=== PATIENT | male | born 1965 | race Caucasian/White ===

== ENCOUNTER 2016-12-28 12:37 | Observation (INO) | payer OTHER ==
[~2016-12-28] VITALS: Ht 167.6 cm; Wt 90.1 kg
[~2016-12-28 12:37] MED LIST: LISI-363 PO; METHO500 PO; PERC10TA27 PO; PERC5TAB12 PO; PRED20 PO; TIZA4CAP PO
[2016-12-28 12:39] VITALS: BP 136/82; PULSE 114; RESP 24; TEMP 103; O2SAT 97
--- NOTE | 2016-12-28 12:44 | PD ---
Physical Exam Time Seen by Provider: 12:42 Narrative 51 y/o male here with sore throat, fevers/chills. Started yesterday. Seen by pcp and sent here Denies cough/congestion/recent travel/rash. Vital signs noted. Seen at triage desk. Awaiting bed placement. Data Data Last Documented VS Vital Signs Date Time Temp Pulse Resp B/P Pulse Ox O2 Delivery O2 Flow Rate FiO2 12/28/16 12:39 103.0 114 24 136/82 97 Room Air [place] Medical Record Reviewed: Yes Supervised Visit with LILIAM: Francis Malhotra December 28, 2016 12:44
[2016-12-28 13:45] VITALS: BP 158/75; PULSE 97; RESP 20; TEMP 103.1; O2SAT 97
[2016-12-28] MEDS ORDERED: LISI10TA3 PO (13:53)
[2016-12-28] MEDS ORDERED: TIZA4CAP3 PO (13:53)
[2016-12-28] MEDS ORDERED: LYRI150C PO (13:53)
[2016-12-28] MEDS ORDERED: PREG20SO PO (13:53)
[2016-12-28] MEDS ORDERED: OXYC1TAB36 PO (13:53)
[2016-12-28] MEDS ORDERED: PRED1SOL (13:53)
[2016-12-28] MEDS ORDERED: SODIUM CHLOR 0.9% 1000 ML INJ 1,000 ML IV ONE ×2 (14:15)
[2016-12-28] MEDS ORDERED: MORPHINE SULFATE 8 MG/ML INJ IV PUSH ONE (14:15)
[2016-12-28] MEDS ORDERED: SODIUM CHLORIDE 0.9% FLUSH 10 ML FLUSH IVF PRN (14:15)
[2016-12-28] MEDS ORDERED: DEXAMETHASONE SOD PHOS 4 MG/ML VIAL IV ONE (14:15)
[2016-12-28] MEDS ORDERED: CLINDAMYCIN INJ 900 MG in SODIUM CHLORIDE 0.9% INJ 100 ML IV ONE (14:15)
[2016-12-28 14:40] LABS: AUTOMATED NEUTROPHIL # 18.8 TH/MM3 (1.8-7.7); BASOPHIL % 0.1 % (0.0-2.0); HEMATOCRIT 51.1 % (39.0-51.0); LYMPH % 3.6 % (9.0-44.0); LYMPHOCYTE # 0.8 TH/MM3 (1.0-4.8); MEAN CELL VOLUME 86.9 FL (80.0-100.0); MEAN CORPUSCULAR HEMOGLOBIN 29.2 PG (27.0-34.0); MEAN CORPUSCULAR HGB CONC 33.6 % (32.0-36.0); NEUT % 90.3 % (16.0-70.0); PLATELET COUNT 269 TH/MM3 (150-450); RED BLOOD COUNT 5.88 MIL/MM3 (4.50-5.90); RED CELL DISTRIBUTION WIDTH 15.3 % (11.6-17.2); WHITE BLOOD COUNT 20.9 TH/MM3 (4.0-11.0)
[2016-12-28 14:41] LABS: HEMO FLAGS AUTO DIFF
[2016-12-28 14:50] LABS: BICARBONATE 26.3 MEQ/L (21.0-32.0); POTASSIUM 3.8 MEQ/L (3.5-5.1)
--- NOTE | 2016-12-28 15:26 | PD ---
HPI Chief Complaint: ENT Complaint Time Seen by Provider: 13:54 Travel History International Travel<30 days: No Contact w/Intl Traveler<30days: No Traveled to known affect area: No History of Present Illness HPI 51-year-old male arrives in about 1 day of sore throat. It hurts on both sides. It's too painful for him to swallow medication including his pain medication for fibromyalgia. He also suffers with fibromyalgia exacerbation and reports pain from head to toe. Subjective fever reported. No dyspnea. He has a history of recurrent episodes of strep throat. His primary is concerned the patient may have a peritonsillar abscess. PFSH Past Medical History Arthritis: Yes High Cholesterol: Yes Diminished Hearing: No Fibromyalgia: Yes Headaches: Yes Herniated Disk: Yes (neck lower back) Hypertension: Yes Musculoskeletal: Yes ( 2 DEGENERATIVE DISCS) Immunizations Current: Yes Past Surgical History Surgical History: No Previous Surgery Social History Alcohol Use: No Tobacco Use: No Substance Use: No Allergies-Medications (Allergen,Severity, Reaction): Coded Allergies: No Known Allergies (Verified , 12/28/16) Reported Meds & Prescriptions Reported Meds & Active Scripts Active Reported Prednisolone-Moxifloxacin Topical 1-0.5% Soln Tizanidine (Tizanidine HCl) 4 Mg Cap 4 Mg PO TID Oxycodone-Acetaminophen 10-325 mg Tab 1 Tab PO Q4H PRN Lisinopril 10 Mg Tab 10 Mg PO DAILY Lyrica (Pregabalin) 150 Mg Cap 150 Mg PO BID Lyrica Liq (Pregabalin) 20 Mg/Ml Soln 20 Mg PO BID Review of Systems Except as stated in HPI: all other systems reviewed are Neg General / Constitutional: Positive: Fever HENT: Positive: Sore Throat Physical Exam Narrative GENERAL: 51-year-old male well-nourished well-developed, no acute distress SKIN: Focused skin assessment warm/dry. HEAD: Atraumatic. Normocephalic. EYES: Pupils equal and round. No scleral icterus. No injection or drainage. ENT: No nasal bleeding or discharge. Mucous membranes pink and moist. Exudates present in tonsils bilaterally with minimal, hypertrophy and erythema. No depression of soft palate/asymmetry. NECK: Trachea midline. No JVD. Anterior neck adenopathy present. CARDIOVASCULAR: Regular rate and rhythm. No murmur appreciated. RESPIRATORY: No accessory muscle use. Clear to auscultation. Breath sounds equal bilaterally. GASTROINTESTINAL: Abdomen soft, non-tender, nondistended. Hepatic and splenic margins not palpable. MUSCULOSKELETAL: No obvious deformities. No clubbing. No cyanosis. No edema. NEUROLOGICAL: Awake and alert. No obvious cranial nerve deficits. Motor grossly within normal limits. Normal speech. PSYCHIATRIC: Appropriate mood and affect; insight and judgment normal. Data Data Last Documented VS Vital Signs Date Time Temp Pulse Resp B/P Pulse Ox O2 Delivery O2 Flow Rate FiO2 12/28/16 13:45 103.1 97 20 158/75 97 Room Air Vital signs reviewed Orders Basic Metabolic Panel (Bmp) (12/28/16 14:01) Complete Blood Count With Diff (12/28/16 14:01) Blood Culture (12/28/16 14:01) Group A Rapid Strep Screen (12/28/16 14:01) Ct Soft Tiss Neck W Iv Cont (12/28/16 14:01) Dexamethasone Inj (Decadron Inj) (12/28/16 14:15) Clindamycin Inj (Cleocin Inj) (12/28/16 14:15) Sodium Chloride 0.9% Flush (Ns Flush) (12/28/16 14:15) Sodium Chlor 0.9% 1000 Ml Inj (Ns 1000 M (12/28/16 14:15) Morphine Inj (Morphine Inj) (12/28/16 14:15) Sodium Chlor 0.9% 1000 Ml Inj (Ns 1000 M (12/28/16 14:15) Strep Culture (Group A) (12/28/16 14:15) Ketorolac Inj (Toradol Inj) (12/28/16 15:30) Hydromorphone Pf Inj (Dilaudid Pf Inj) (12/28/16 15:30) Iohexol 350 Inj (Omnipaque 350 Inj) (12/28/16 16:44) Prochlorperazine Inj (Compazine Inj) (12/28/16 16:45) Diphenhydramine Inj (Benadryl Inj) (12/28/16 16:45) Admit Order (Ed Use Only) (12/28/16 17:38) Labs Laboratory Tests Test 12/28/16 14:15 White Blood Count 20.9 TH/MM3 Red Blood Count 5.88 MIL/MM3 Hemoglobin 17.1 GM/DL Hematocrit 51.1 % Mean Corpuscular Volume 86.9 FL Mean Corpuscular Hemoglobin 29.2 PG Mean Corpuscular Hemoglobin 33.6 % Concent Red Cell Distribution Width 15.3 % Platelet Count 269 TH/MM3 Mean Platelet Volume 9.5 FL Neutrophils (%) (Auto) 90.3 % Lymphocytes (%) (Auto) 3.6 % Monocytes (%) (Auto) 6.0 % Eosinophils (%) (Auto) 0.0 % Basophils (%) (Auto) 0.1 % Neutrophils # (Auto) 18.8 TH/MM3 Lymphocytes # (Auto) 0.8 TH/MM3 Monocytes # (Auto) 1.3 TH/MM3 Eosinophils # (Auto) 0.0 TH/MM3 Basophils # (Auto) 0.0 TH/MM3 CBC Comment AUTO DIFF Differential Total Cells 100 Counted Neutrophils % (Manual) 68 % Band Neutrophils % 18 % Lymphocytes % 8 % Monocytes % 5 % Basophils % 1 % Neutrophils # (Manual) 18.0 TH/MM3 Differential Comment FINAL DIFF MANUAL Atypical Lymphocytes % Toxic Vacuolation PRESENT Platelet Estimate NORMAL Platelet Morphology Comment ENLARGED Ovalocytes 1+ Stomatocytes 1+ Sodium Level 136 MEQ/L Potassium Level 3.8 MEQ/L Chloride Level 101 MEQ/L Carbon Dioxide Level 26.3 MEQ/L Anion Gap 9 MEQ/L Blood Urea Nitrogen 13 MG/DL Creatinine 1.37 MG/DL Estimat Glomerular Filtration 55 ML/MIN Rate Random Glucose 109 MG/DL Calcium Level 9.1 MG/DL [facility] Medical Decision Making Medical Screen Exam Complete: Yes Emergency Medical Condition: Yes Medical Record Reviewed: Yes Differential Diagnosis Strep pharyngitis, viral pharyngitis, peritonsillar abscess, retropharyngeal abscess, ENT mass Narrative Course CBC & BMP Diagram 12/28/16 14:15 Bands 18% IVF started. Clindamycin 900mg IV started. Strep screen is negative, ? False-negative. Admission for IV antibiotics. Discussed with Dr. Araujo Last [address] 12/28/16 1401 Signed Impressions: Service Date/Time: Wednesday, December 28, 2016 16:15 - CONCLUSION: Swelling of the tonsils bilaterally, right worse than left. No evidence of abscess. Luis Valdovinos MD Sepsis Criteria SIRS Criteria (2 or more): Temp > 100.9 or < 96.8, Heart rate over 90, WBC > 41824, < 4000 or > 10% bands Sepsis Criteria (SIRS+source): Infect source susp/known Diagnosis Primary Impression: Sepsis Qualified Code: A41.9 - Sepsis, due to unspecified organism Additional Impression: Pharyngitis Qualified Code: J02.9 - Pharyngitis, unspecified etiology Admitting Information Admitting Physician Requests: Admit Additional Instructions: You have a choice when it comes to health care, and we are glad that you chose [facility]. Hopefully, we have met your expectations on today's visit. You are welcome to return to [facility] at any time, as we are committed to meeting the health care needs of our community. Alessandro Null MD December 28, 2016 15:26
[2016-12-28] MEDS ORDERED: KETOROLAC TROMETHAMINE 30 MG/ML (IVP) VIAL IV PUSH ONE (15:30)
[2016-12-28] MEDS ORDERED: HYDROmorphone HCL PF 1 MG/ML VIAL IV PUSH ONE (15:30)
[2016-12-28 15:46] VITALS: BP 132/63; PULSE 96; RESP 18; O2SAT 97
[2016-12-28 16:03] LABS: BANDS 18 % (0-6); BASOPHILS 1 % (0-2); POLYS (SEG NEUTROPHILS) 68 % (16-70); WBC DIFF SAMPLE 100
[2016-12-28 16:05] LABS: STOMATOCYTES 1+ (NORMAL); TOXIC VACUOLATION PRESENT (NONE SEEN)
[2016-12-28 16:07] LABS: OVALOCYTES 1+ (NORMAL); SCAN/DIFF FINAL DIFF MANUAL
[2016-12-28 16:13] LABS: PLATELET ESTIMATE SMEAR NORMAL (NORMAL)
[2016-12-28 16:16] LABS: PLATELET MORPHOLOGY ENLARGED (NORMAL)
[2016-12-28] MEDS ORDERED: IOHEXOL 350 MG/ML 10 ML VIAL (for RAD DIAG) IV ONE (16:44)
[2016-12-28] MEDS ORDERED: PROCHLORPERAZINE INJ 10 MG/2 ML VIAL IV PUSH ONE (16:45)
[2016-12-28] MEDS ORDERED: diphenhydrAMINE HCL 50 MG/ML VIAL IV PUSH ONE (16:45)
--- NOTE | 2016-12-28 17:02 | RADRPT ---
EXAM DATE/TIME: 12/28/2016 16:15 [place] COMPARISON: No previous studies available for comparison. INDICATIONS : Swellingand sore throat since yesterday aftenoon. IV CONTRAST: 60 cc Omnipaque 350 (iohexol) IV RADIATION DOSE: 16.68 CTDIvol (mGy) MEDICAL HISTORY : Hypertension. fibromyalgia SURGICAL HISTORY : None. ENCOUNTER: Initial ACUITY: 1 day PAIN SCALE: 7/10 LOCATION: Bilateral neck TECHNIQUE: Volumetric scanning of the neck was performed. Using automated exposure control and adjustment of th e mA and/or kV according to patient size, radiation dose was kept as low as reasonably achievable to obtain optimal diagnostic quality images. FINDINGS: Incidental aberrant right subclavian artery. NASOPHARYNX: The nasopharyngeal airway has a normal configuration. No mucosal thickening or mass is seen. OROPHARYNX: The pharyngeal tonsils are mildly swollen, greater on the right than the left. There is no evidence o f discrete abscess. LARYNX: The supraglottic, glottic, and infraglottic structures are intact. PARAPHARYNGEAL: The parapharyngeal space is intact. SALIVARY GLANDS: The parotid and submandibular glands are intact. LYMPH NODES: No enlarged or necrotic-appearing nodes. THYROID: Homogeneous enhancement without evidence of nodule. BONES: Unremarkable. CONCLUSION: Swelling of the tonsils bilaterally, right worse than left. No evidence of abscess. Luis Valdovinos MD on December 28, 2016 at 16:57 Board Certified Radiologist. This report was verified electronically.
[2016-12-28] MEDS ORDERED: ONDANSETRON HCL 4 MG/2 ML VIAL IVP PRN (17:45)
[2016-12-28] MEDS ORDERED: MAGNESIUM HYDROXIDE SUSP 30 ML CUP PO PRN (17:45)
[2016-12-28] MEDS ORDERED: ACETAMINOPHEN 325 MG TAB PO PRN (17:45)
[2016-12-28] MEDS ORDERED: NALOXONE HCL 0.4 MG/ML AMP IV PRN (17:45)
[2016-12-28] MEDS ORDERED: SODIUM CHLORIDE 0.9% FLUSH 10 ML FLUSH IV FLUSH PRN (17:45)
[2016-12-28] MEDS ORDERED: MORPHINE SULFATE 4 MG/ML INJ IV PUSH PRN (17:45)
[2016-12-28 17:46] VITALS: BP 123/67; PULSE 71; RESP 20; TEMP 98.6; O2SAT 97
[2016-12-28] MEDS ORDERED: HEPARIN SODIUM - SQ 10,000 UNITS/ML VIAL SQ SCH (18:00)
[2016-12-28] MEDS: SODIUM CHLOR 0.9% 1000 ML INJ 1,000 ML IV SCH (18:50)
[2016-12-28 19:00] VITALS: BP 114/62; PULSE 68; RESP 16; TEMP 98.2; O2SAT 98
[2016-12-28] MEDS ORDERED: AMPICILLIN-SULBACTAM INJ 3 GM in SODIUM CHLORIDE 0.9% INJ 100 ML IV SCH (20:00)
--- NOTE | 2016-12-28 20:52 | HHI.HP ---
HPI Service CP Hospitalists Primary Care Physician Unknown Admission Diagnosis Sepsis (Pharyngitis), Fibromyalgia Chief Complaint: fever sore throat for 1 day with difficulty swallowing Travel History International Travel<30 Days: No Contact w/Intl Traveler <30 Da: No Traveled to Known Affected Are: No Sepsis Criteria SIRS Criteria (2 or more): Temp > 100.9 or < 96.8, WBC > 15340, < 4000 or > 10 % bands Sepsis Criteria (SIRS+source): Infect source susp/known History of Present Illness 51 y/o male with 1 day of severe sore throat with inability to swallow difficulty taking medication and came to er also with associated fever chills . In er found to have bilateral tonsilar swelling with exudates and elevated WBC count will admit for IV antibiotics and ENT evaluation. Review of Systems Constitutional: COMPLAINS OF: Fever, Chills Ears, nose, mouth, throat: COMPLAINS OF: Throat pain, Hoarseness Past Family Social History Past Medical History djd fibromyalgia,lumbar pain,hyperlipids Past Surgical History none Reported Medications lyrica 150 tid ,oxycodone Allergies: Coded Allergies: No Known Allergies (Verified , 12/28/16) Social History NS,ND Physical Exam Vital Signs Vital Signs Date Time Temp Pulse Resp B/P Pulse Ox O2 Delivery O2 Flow Rate FiO2 12/28/16 17:46 98.6 71 20 123/67 97 Room Air 12/28/16 15:46 96 18 132/63 97 Room Air 12/28/16 13:45 103.1 97 20 158/75 97 Room Air 12/28/16 12:39 103.0 114 24 136/82 97 Room Air Physical Exam GENERAL: This is a well-nourished, well-developed patient, in no apparent distress. SKIN: No rashes, ecchymoses or lesions. Cool and dry. HEAD: Atraumatic. Normocephalic. No temporal or scalp tenderness. EYES: Pupils equal round and reactive. Extraocular motions intact. No scleral icterus. No injection or drainage. ENT: Nose without bleeding, purulent drainage or septal hematoma. Throat with erythema, tonsillar hypertrophy and exudates. Uvula midline. Airway patent. NECK: Trachea midline. No JVD or lymphadenopathy. Supple, nontender, no meningeal signs. CARDIOVASCULAR: Regular rate and rhythm without murmurs, gallops, or rubs. RESPIRATORY: Clear to auscultation. Breath sounds equal bilaterally. No wheezes , rales, or rhonchi. GASTROINTESTINAL: Abdomen soft, non-tender, nondistended. No hepato-splenomegaly , or palpable masses. No guarding. MUSCULOSKELETAL: Extremities without clubbing, cyanosis, or edema. No joint tenderness, effusion, or edema noted. No calf tenderness. Negative Homans sign bilaterally. NEUROLOGICAL: Awake and alert. Cranial nerves II through XII intact. Motor and sensory grossly within normal limits. Five out of 5 muscle strength in all muscle groups. Normal speech. Laboratory Laboratory Tests Test 12/28/16 14:15 White Blood Count 20.9 Red Blood Count 5.88 Hemoglobin 17.1 Hematocrit 51.1 Mean Corpuscular Volume 86.9 Mean Corpuscular Hemoglobin 29.2 Mean Corpuscular Hemoglobin 33.6 Concent Red Cell Distribution Width 15.3 Platelet Count 269 Mean Platelet Volume 9.5 Neutrophils (%) (Auto) 90.3 Lymphocytes (%) (Auto) 3.6 Monocytes (%) (Auto) 6.0 Eosinophils (%) (Auto) 0.0 Basophils (%) (Auto) 0.1 Neutrophils # (Auto) 18.8 Lymphocytes # (Auto) 0.8 Monocytes # (Auto) 1.3 Eosinophils # (Auto) 0.0 Basophils # (Auto) 0.0 CBC Comment AUTO DIFF Differential Total Cells 100 Counted Neutrophils % (Manual) 68 Band Neutrophils % 18 Lymphocytes % 8 Monocytes % 5 Basophils % 1 Neutrophils # (Manual) 18.0 Differential Comment FINAL DIFF MANUAL Atypical Lymphocytes Toxic Vacuolation PRESENT Platelet Estimate NORMAL Platelet Morphology Comment ENLARGED Ovalocytes 1+ Stomatocytes 1+ Sodium Level 136 Potassium Level 3.8 Chloride Level 101 Carbon Dioxide Level 26.3 Anion Gap 9 Blood Urea Nitrogen 13 Creatinine 1.37 Estimat Glomerular Filtration 55 Rate Random Glucose 109 Calcium Level 9.1 Date/Time Procedure Status Source Growth 12/28/16 14:20 Aerobic Blood Culture Received Blood Peripheral Pending 12/28/16 14:20 Anaerobic Blood Culture Received Blood Peripheral Pending 12/28/16 14:15 Group A Streptococcus Screen ([facility]ENNIFFER) - Final Complete Throat 12/28/16 14:15 Group A Streptococcus Screen Received Throat Pending Result Diagram: 12/28/16 1415 12/28/16 1415 Imaging Last [address] 12/28/16 1401 Signed Impressions: Service Date/Time: Wednesday, December 28, 2016 16:15 - CONCLUSION: Swelling of the tonsils bilaterally, right worse than left. No evidence of abscess. Luis Valdovinos MD Course in er received clindamycin morphine Assessment and Plan Problem List: (1) Pharyngitis Status: Acute Plan: continue clindamycin iv fluid follow up labs (2) Acute infective tonsillitis Status: Acute Plan: as above will consult ENT CT shows no evidence abscess (3) Sepsis Status: Acute Plan: based on lab and fever and source will follow labs Assessment and Plan further plan as case develops Code Status full Discussed Condition With patient Physician Certification 2 Midnight Certification Type: Admission for Inpatient Services Order for Inpatient Services The services are ordered in accordance with Medicare regulations or non- Medicare payer requirements, as applicable. In the case of services not specified as inpatient-only, they are appropriately provided as inpatient services in accordance with the 2-midnight benchmark. Estimated LOS (days): 2 2 days is the estimated time the patient will need to remain in the hospital, assuming treatment plan goals are met and no additional complications. Post-Hospital Plan: Not yet determined Problem Qualifiers (1) Pharyngitis: Qualified Code: J02.9 - Pharyngitis, unspecified etiology (2) Sepsis: Qualified Code: A41.9 - Sepsis, due to unspecified organism Isaiah Tuttle MD December 28, 2016 20:52
[2016-12-28] MEDS ORDERED: SODIUM CHLORIDE 0.9% FLUSH 10 ML FLUSH IV FLUSH SCH (21:00)
[2016-12-28] MEDS ORDERED: PILL SPLITTER OTHER PRN (21:00)
[2016-12-28] MEDS: CLINDAMYCIN INJ 600 MG in SODIUM CHLORIDE 0.9% INJ 100 ML IV SCH (21:37)
[2016-12-28] MEDS: PREGABALIN 75 MG CAP PO SCH (21:37)
[2016-12-28] MEDS ORDERED: PREGABALIN 100 MG CAP PO SCH (22:00)
[2016-12-28 23:22] VITALS: BP 118/61; PULSE 60; RESP 18; TEMP 98.1; O2SAT 97
[2016-12-29] VITALS (7 sets, daily range): BP systolic 90–127; BP diastolic 49–70; PULSE 55–70; RESP 16–18; TEMP 96–97.9; O2SAT 95–99
[2016-12-29 05:15] LABS: HEMATOCRIT 42.6 % (39.0-51.0); HEMO FLAGS DIFF FINAL; LYMPH % 4.8 % (9.0-44.0); MEAN CELL VOLUME 85.4 FL (80.0-100.0); MEAN CORPUSCULAR HEMOGLOBIN 29.7 PG (27.0-34.0); MEAN CORPUSCULAR HGB CONC 34.7 % (32.0-36.0); MONO % 2.9 % (0.0-8.0); NEUT % 92.3 % (16.0-70.0); PLATELET COUNT 263 TH/MM3 (150-450); RED BLOOD COUNT 4.98 MIL/MM3 (4.50-5.90); RED CELL DISTRIBUTION WIDTH 15.1 % (11.6-17.2); WHITE BLOOD COUNT 20.6 TH/MM3 (4.0-11.0)
[2016-12-29 05:50] LABS: BICARBONATE 22.8 MEQ/L (21.0-32.0); POTASSIUM 3.9 MEQ/L (3.5-5.1)
[2016-12-29] MEDS: CLINDAMYCIN INJ 600 MG in SODIUM CHLORIDE 0.9% INJ 100 ML IV SCH ×2 (06:12→13:06)
[2016-12-29] MEDS: PREGABALIN 75 MG CAP PO SCH ×3 (06:12→22:32)
[2016-12-29] MEDS: SODIUM CHLOR 0.9% 1000 ML INJ 1,000 ML IV SCH ×2 (06:13→15:10)
[2016-12-29] MEDS ORDERED: LISINOPRIL 10 MG TAB PO SCH (09:00)
--- NOTE | 2016-12-29 10:27 | HHI.PR ---
Subjective Remarks Pt complains of continued pain all over He states that his throat pain is slightly better today and he is able to swallow some liquids and pills. No fevers since admission. Objective Vitals Vital Signs Date Time Temp Pulse Resp B/P Pulse Ox O2 Delivery O2 Flow Rate FiO2 12/29/16 08:00 96.2 70 16 104/56 95 12/29/16 07:41 95 21 12/29/16 04:31 97.6 70 18 127/70 97 12/28/16 23:22 98.1 60 18 118/61 97 12/28/16 19:00 98.2 68 16 114/62 98 Room Air 12/28/16 17:46 98.6 71 20 123/67 97 Room Air 12/28/16 15:46 96 18 132/63 97 Room Air 12/28/16 13:45 103.1 97 20 158/75 97 Room Air 12/28/16 12:39 103.0 114 24 136/82 97 Room Air Result Diagram: 12/29/16 0431 12/29/16 0431 Other Results Laboratory Tests Test 12/28/16 12/29/16 14:15 04:31 White Blood Count 20.9 TH/MM3 20.6 TH/MM3 Red Blood Count 5.88 MIL/MM3 4.98 MIL/MM3 Hemoglobin 17.1 GM/DL 14.8 GM/DL Hematocrit 51.1 % 42.6 % Mean Corpuscular Volume 86.9 FL 85.4 FL Mean Corpuscular Hemoglobin 29.2 PG 29.7 PG Mean Corpuscular Hemoglobin 33.6 % 34.7 % Concent Red Cell Distribution Width 15.3 % 15.1 % Platelet Count 269 TH/MM3 263 TH/MM3 Mean Platelet Volume 9.5 FL 9.1 FL Neutrophils (%) (Auto) 90.3 % 92.3 % Lymphocytes (%) (Auto) 3.6 % 4.8 % Monocytes (%) (Auto) 6.0 % 2.9 % Eosinophils (%) (Auto) 0.0 % 0.0 % Basophils (%) (Auto) 0.1 % 0.0 % Neutrophils # (Auto) 18.8 TH/MM3 19.0 TH/MM3 Lymphocytes # (Auto) 0.8 TH/MM3 1.0 TH/MM3 Monocytes # (Auto) 1.3 TH/MM3 0.6 TH/MM3 Eosinophils # (Auto) 0.0 TH/MM3 0.0 TH/MM3 Basophils # (Auto) 0.0 TH/MM3 0.0 TH/MM3 CBC Comment AUTO DIFF DIFF FINAL Differential Total Cells 100 Counted Neutrophils % (Manual) 68 % Band Neutrophils % 18 % Lymphocytes % 8 % Monocytes % 5 % Basophils % 1 % Neutrophils # (Manual) 18.0 TH/MM3 Differential Comment FINAL DIFF MANUAL Atypical Lymphocytes % Toxic Vacuolation PRESENT Platelet Estimate NORMAL Platelet Morphology Comment ENLARGED Ovalocytes 1+ Stomatocytes 1+ Sodium Level 136 MEQ/L 141 MEQ/L Potassium Level 3.8 MEQ/L 3.9 MEQ/L Chloride Level 101 MEQ/L 111 MEQ/L Carbon Dioxide Level 26.3 MEQ/L 22.8 MEQ/L Anion Gap 9 MEQ/L 7 MEQ/L Blood Urea Nitrogen 13 MG/DL 15 MG/DL Creatinine 1.37 MG/DL 0.87 MG/DL Estimat Glomerular Filtration 55 ML/MIN 93 ML/MIN Rate Random Glucose 109 MG/DL 133 MG/DL Calcium Level 9.1 MG/DL 8.1 MG/DL Imaging Last [address] 12/28/16 1401 Signed Impressions: Service Date/Time: Wednesday, December 28, 2016 16:15 - CONCLUSION: Swelling of the tonsils bilaterally, right worse than left. No evidence of abscess. Luis Valdovinos MD Objective Remarks General: NAD, AAOx3 ENT: Erythema on the posterior pharynx and tonsils with exudates present R>L Chest: CTA Cardiac: Regular Abd: +BS, soft ND/NT Ext: No edema A/P Problem List: (1) Pharyngitis Status: Acute Plan: - Pt admitted with complaints of severe swelling and pain in his throat that began suddenly on 12/27/16 - Pt reports a remote hx of peritonsillar abscess at age 18 that had to be lanced. - Neck CT (12/28/16) --> Swelling of the tonsils bilaterally, right worse than left. No evidence of abscess. - Labs at admission with WBC count over 20,000 and fever of 103 degrees in the ED - Initial throat swab in the ED was negative [place] strep - Blood cultures were drawn in the ED and are pending - Repeat Culture from throat is pending. - Pt was given IV Clindamycin in the ED ans this was continued. We will change Clindamycin to Zosyn - Cont. IVF - ENT is consulted - Pain control PRN - Monitor labs and vitals closely - DVT prophylaxis (2) Acute infective tonsillitis Status: Acute Plan: - See above. Assessment and Plan Patient examined. Assessment and plan formulated with Lisa Titus PA-C. I agree with the above. severe pharygitis. worse on right side peritonsillar. no abscess on ct imaging. improved today. cont iv abx and possible d/c tomorrow. Problem Qualifiers (1) Pharyngitis: Qualified Code: J02.9 - Pharyngitis, unspecified etiology Lisa Titus December 29, 2016 10:27 Slim Langley MD December 29, 2016 15:33
[2016-12-29] MEDS ORDERED: ACETAMINOPHEN/HYDROcodone 325 MG/5 MG TAB PO PRN (10:45)
[2016-12-29] MEDS ORDERED: HYDROmorphone HCL PF 1 MG/ML VIAL IV PUSH PRN (10:45)
[2016-12-29] MEDS: ACETAMINOPHEN/HYDROcodone 325 MG/5 MG TAB PO PRN ×2 (13:06→20:13)
[2016-12-29] MEDS: PIPERACIL-TAZO 3.375 GM PREMIX 50 ML IV SCH ×2 (15:10→20:03)
[2016-12-29] MEDS: ALUMINUM/MAGNESIUM/SIMETH 30 ML CUP PO PRN ×2 (16:22→22:32)
[2016-12-30 00:07] VITALS: BP 125/58; RESP 18; TEMP 97.6; O2SAT 98
[2016-12-30] MEDS: ACETAMINOPHEN/HYDROcodone 325 MG/5 MG TAB PO PRN ×3 (01:21→09:51)
[2016-12-30 01:35] VITALS: BP 133/62; PULSE 52; RESP 20; TEMP 97.4; O2SAT 99
[2016-12-30] MEDS: PIPERACIL-TAZO 3.375 GM PREMIX 50 ML IV SCH ×2 (01:42→08:23)
[2016-12-30 04:00] VITALS: BP 112/54; PULSE 47; RESP 20; TEMP 97.7; O2SAT 99
[2016-12-30 05:04] VITALS: PULSE 54
[2016-12-30] MEDS: PREGABALIN 75 MG CAP PO SCH (05:52)
[2016-12-30 07:41] LABS: AUTOMATED NEUTROPHIL # 13.4 TH/MM3 (1.8-7.7); BASOPHIL % 0.3 % (0.0-2.0); EOSINOPHIL % 0.1 % (0.0-4.0); HEMATOCRIT 38.5 % (39.0-51.0); HEMO FLAGS DIFF FINAL; LYMPH % 13.6 % (9.0-44.0); LYMPHOCYTE # 2.3 TH/MM3 (1.0-4.8); MEAN CELL VOLUME 86.4 FL (80.0-100.0); MEAN CORPUSCULAR HEMOGLOBIN 29.1 PG (27.0-34.0); MEAN CORPUSCULAR HGB CONC 33.6 % (32.0-36.0); MONO % 5.8 % (0.0-8.0); NEUT % 80.2 % (16.0-70.0); PLATELET COUNT 221 TH/MM3 (150-450); RED BLOOD COUNT 4.46 MIL/MM3 (4.50-5.90); RED CELL DISTRIBUTION WIDTH 15.4 % (11.6-17.2); WHITE BLOOD COUNT 16.7 TH/MM3 (4.0-11.0)
[2016-12-30 08:00] VITALS: BP 132/65; PULSE 51; RESP 20; TEMP 98.3; O2SAT 99
[2016-12-30 08:02] LABS: MAGNESIUM 2.7 MG/DL (1.5-2.5); POTASSIUM 4.1 MEQ/L (3.5-5.1)
[2016-12-30] MEDS ORDERED: AUGM500T7 PO (09:19)
--- NOTE | 2016-12-30 09:19 | HHI.PR ---
Subjective Remarks "I feel great". "swallowing back to nml and pain resolved" pt wants to go home. Objective Vitals neck supple rafael tonsils with exudate but no asymmetry at present heart reg lung cta abd s/nt ext no edema Vital Signs Date Time Temp Pulse Resp B/P Pulse Ox O2 Delivery O2 Flow Rate FiO2 12/30/16 08:00 98.3 51 20 132/65 99 12/30/16 05:04 54 12/30/16 04:00 97.7 47 20 112/54 99 12/30/16 01:35 97.4 52 20 133/62 99 12/30/16 00:29 18 12/30/16 00:07 97.6 18 125/58 98 12/29/16 21:27 18 12/29/16 20:42 97.9 57 18 102/58 99 12/29/16 19:25 96 21 12/29/16 16:00 96.0 56 18 90/49 96 12/29/16 12:00 96.3 55 18 94/50 95 12/29/16 12/29/16 12/30/16 15:00 23:00 07:00 Intake Total 1140 ml 4 ml Balance 1140 ml 4 ml Intake Oral 1140 ml IV Total 4 ml # Voids 3 # Bowel Movements 1 Result Diagram: 12/30/16 0430 12/30/16 0430 Imaging Last [address] 12/28/16 1401 Signed Impressions: Service Date/Time: Wednesday, December 28, 2016 16:15 - CONCLUSION: Swelling of the tonsils bilaterally, right worse than left. No evidence of abscess. Luis Valdovinos MD A/P Problem List: (1) Pharyngitis Status: Acute Plan: - Pt admitted with complaints of severe swelling and pain in his throat that began suddenly on 12/27/16 - Pt reports a remote hx of peritonsillar abscess at age 18 that had to be lanced. - Neck CT (12/28/16) --> Swelling of the tonsils bilaterally, right worse than left. No evidence of abscess. - Labs at admission with WBC count over 20,000 and fever of 103 degrees in the ED - Initial throat swab in the ED was negative for strep - Pt has been on zosyn and today says he feels back to nml...He wants to go home. I offered another day of iv abx but he kindly refused. we discussed the ct neg for abscess..but if his sx's reoccur then he may benefit from an ENT referral. will convert zosyn to augmentin./ f/u pcp for recheck. f/u pending throat cx. (2) Acute infective tonsillitis Status: Acute Plan: - See above. Problem Qualifiers (1) Pharyngitis: Qualified Code: J02.9 - Pharyngitis, unspecified etiology Slim Langley MD December 30, 2016 09:18
--- NOTE | 2016-12-30 09:20 | HHI.DCPOC ---
Discharge Care Plan Diagnosis: (1) Pharyngitis (2) Acute bacterial tonsillitis Goals to Promote Your Health * To prevent worsening of your condition and complications * To maintain your health at the optimal level Directions to Meet Your Goals Take your medications as prescribed Follow your dietary instruction Follow activity as directed Keep your appointments as scheduled Take your immunizations and boosters as scheduled If your symptoms worsen call your PCP, if no PCP go to Urgent Care Center or Emergency Room Smoking is Dangerous to Your Health. Avoid second hand smoke Call the 24-hour hour crisis hotline for domestic abuse at Slim Langley MD December 30, 2016 09:20
[2016-12-30 11:09] VITALS: O2SAT 98
== END 2016-12-30 11:30 | disposition home or self-care (01) ==
LOC: NEPE 12:37 → INTOOBSV 17:39 → NEDA 17:39 → NEPFCDU 23:18 → N04A 12-30 01:30
PROVIDERS: ADMIT Hospitalist; ATTEND Hospitalist
DX: A41.9 Sepsis, unspecified organism (principal); J03.90 Acute tonsillitis, unspecified; M79.7 Fibromyalgia; M19.90 Unspecified osteoarthritis, unspecified site; E78.00 Pure hypercholesterolemia, unspecified; R51 Headache; I10 Essential (primary) hypertension; Z79.899 Other long term (current) drug therapy
CPT/HCPCS: 70491; 80048; 83735; 85007; 85025; 85027; 87040; 87070; 87081; 87880; 96374; 96375; 99285; G0378; J0780; J1100; J1170; J1200; J1885; J2270; J2543; J7030; Q9967